=== PATIENT | female | born 1955 | race Caucasian/White ===

== ENCOUNTER 2020-09-12 13:55 | Emergency (ER) | payer MEDICARE ==
--- NOTE | 2020-09-12 14:45 | EDM.PDOC ---
ED HPI GENERAL MEDICAL PROBLEM - General Chief Complaint: Skin Complaint Stated Complaint: BANDAGE ON LEFT ARM KEEPS COMING OFF Time Seen by Provider: 09/12/20 14:00 Source of Information: Reports: Patient History Limitations: Reports: No Limitations - History of Present Illness INITIAL COMMENTS - FREE TEXT/NARRATIVE: Patient comes emergency department today with complaints of a wound recheck to her left arm. At about 830 this morning at neurology in [place] this patient had a surgical procedure in the outpatient setting for a biopsy of muscle to determine some neurology complaints. She had some sutures Steri-Strips placed and a dressing. The dressing has been sliding off and she is worried about the incision site. To make sure that everything is okay. She denies any change in the functionality of her left upper extremity. He has noticed that is been bleeding a little bit more. She has been keeping ice packs on it. Her tetanus immunization is up-to-date. - Related Data Allergies Allergy/AdvReac Type Severity Reaction Status Date / Time No Known Allergies Allergy Verified 09/12/20 14:19 Social & Family History - Tobacco Use Tobacco Use Status *Q: Unknown Ever Used Tobacco ED ROS GENERAL - Review of Systems Review Of Systems: Comprehensive ROS is negative, except as noted in HPI. ED EXAM, SKIN/RASH Exam: See Below Exam Limited By: No Limitations General Appearance: Alert, WD/WN, No Apparent Distress Respiratory/Chest: No Respiratory Distress Cardiovascular: Normal Peripheral Pulses Peripheral Pulses: 2+: Radial (L), Radial (R) Extremities: No: Normal Inspection (Lamination the left upper proximal anterior humerus shows a distal to proximal approximately 5 cm surgical incision that is minimally gaping in the middle with some Steri-Strips that have fallen off. There is a suture on the proximal and distal end of the surgical site but there are no sutures in the middle. There is no subcutaneous stitches under this either that I can identify. There is a small amount of capillary bleeding. There is no erythema injection swelling or hematoma of the area. The functionality of the left upper extremity is unchanged.) Neurological: Alert, Oriented Psychiatric: Normal Affect Skin: Warm, Dry, Intact, Normal Color Course - Vital Signs Last Recorded V/S: Last Vital Signs Temp 98.0 F 09/12/20 14:05 Pulse 74 09/12/20 14:05 Resp 16 09/12/20 14:05 BP 167/81 H 09/12/20 14:05 Pulse Ox 96 09/12/20 14:05 - Re-Assessments/Exams Free Text/Narrative Re-Assessment/Exam: 09/12/20 15:12 This wound is many hours old. I just cleanse the external aspect of it with chlorhexidine. And allowed it to dry. I then used benzoin tincture and half- inch Steri-Strips to resecure and close the vision. There was no active bleeding after this was completed. A dressing was placed. If she has any complication she is to follow-up with neurology and/or her primary care. I discussed with her the care of this Steri-Strip she was comfortable with this plan her questions are answered. Departure - Departure Time of Disposition: 14:32 Disposition: Home, Self-Care 01 Clinical Impression: Encounter for wound re-check - Discharge Information Forms: ED Department Discharge Additional Instructions: Discharge instructions as per neurology/provider that did the procedure. Leave the Steri-Strips in place they will fall off on their own. Do not get the area wet until all healed up. Watch for signs of infection. Recheck in the ED if new or worsening symptoms. Recheck in the clinic if concerns. Sepsis Event Note (ED) - Evaluation Sepsis Screening Result: No Definite Risk - Focused Exam Vital Signs: Vital Signs Temp Pulse Resp BP Pulse Ox 09/12/20 14:05 98.0 F 74 16 167/81 H 96
== END 2020-09-12 14:42 | disposition home or self-care (01) ==
LOC: VM.ED 13:55
DX: Z48.817 Encounter for surgical aftercare following surgery on the skin and subcutaneous tissue (principal)
CPT/HCPCS: 99282; 99283

== ENCOUNTER 2022-09-05 05:30 | Emergency (ER) | payer MEDICARE | END 2022-09-05 06:34 | disposition home or self-care (01) | LOC: VM.ED 05:30 | DX: M94.0 Chondrocostal junction syndrome [Tietze] (principal); I10 Essential (primary) hypertension; Z79.82 Long term (current) use of aspirin; Z79.899 Other long term (current) drug therapy | CPT/HCPCS: 93005; 99285 ==

== ENCOUNTER 2025-03-14 09:34 | Emergency (ER) | payer MEDICARE ==
[2025-03-14] MEDS: HYDROmorphone 0.5 MG/0.5 ML Syringe IVPUSH ONE (09:02)
== END 2025-03-14 12:20 | disposition home or self-care (01) ==
LOC: VM.ED 09:34
DX: S02.609A Fracture of mandible, unspecified, initial encounter for closed fracture (principal); I10 Essential (primary) hypertension; M19.90 Unspecified osteoarthritis, unspecified site; Z79.82 Long term (current) use of aspirin; Z79.899 Other long term (current) drug therapy; W01.10XA Fall on same level from slipping, tripping and stumbling with subsequent striking against unspecified object, initial encounter
CPT/HCPCS: 70486; 96374; 99284; 99284-25

== ENCOUNTER 2025-08-25 03:19 | Emergency (ER) | payer MEDICARE ==
[2025-08-25] MEDS ORDERED: Sodium Chloride 0.9% 10 ML Syringe FLUSH PRN (03:40)
[2025-08-25] MEDS: fentaNYL 100 MCG/2 ML SDV IVPUSH ONE (03:47)
[2025-08-25 04:02] LABS: BASOPHILS ABSOLUTE AUTO 0.0 x10^3/uL (0.0-0.2); BASOPHILS PERCENT AUTO 0.3 % (0.2-1.2); EOSINOPHILS ABSOLUTE AUTO 0.1 x10^3/uL (0.0-0.5); EOSINOPHILS PERCENT AUTO 1.0 % (0.0-4.0); IMMATURE GRAN ABSOLUTE AUTO 0.10 x10^3/uL (0.00-0.07); IMMATURE GRAN PERCENT AUTO 1.00 % (0.00-0.43); LYMPHOCYTES ABSOLUTE AUTO 2.9 x10^3/uL (1.0-4.8); LYMPHOCYTES PERCENT AUTO 29.1 % (25.0-50.0); MONOCYTES ABSOLUTE AUTO 0.7 x10^3/uL (0.0-0.8); MONOCYTES PERCENT AUTO 7.0 % (2.0-11.0); NEUTROPHILS ABSOLUTE AUTO 6.1 x10^3/uL (1.8-7.7); NEUTROPHILS PERCENT AUTO 61.6 % (50.0-80.0); PLATELET COUNT,PLT 371 x10^3/uL (130-400); RED BLOOD CELL COUNT 4.39 x10^6/uL (4.00-5.50); WHITE BLOOD CELL COUNT,WBC 10.0 x10^3/uL (4.0-10.0)
[2025-08-25 04:21] LABS: A/G RATIO 1.13; ALANINE AMINOTRANSFERASE,ALT 57 U/L (14-59); ASPARTATE AMNIOTRANSFERASE,AST 32 U/L (15-37); BILIRUBIN TOTAL 0.6 mg/dL (0.2-1.0); BLOOD UREA NITROGEN,BUN 16 mg/dL (7-18); CARBON DIOXIDE,CO2 25 mmol/L (21-32); CHLORIDE,CL 106 mmol/L (98-107); CREATININE 0.9 mg/dL (0.55-1.02); GLUCOSE RANDOM 111 mg/dL (70-99); POTASSIUM,K 4.7 mmol/L (3.5-5.1); PROTEIN TOTAL,TP 6.8 g/dL (6.4-8.2); SODIUM,NA 140 mmol/L (136-145)
[2025-08-25 04:23] LABS: ESTIMATED GFR 68 mL/min (>=60)
[2025-08-25 04:29] LABS: APPEARANCE,URINE CLEAR (CLEAR); GLUCOSE,URINE NEGATIVE (NEGATIVE); OCCULT BLOOD,URINE NEGATIVE (NEGATIVE)
[2025-08-25 04:37] LABS: SQUAMOUS EPITHELIAL CELLS,UR OCCASIONAL /HPF (NOT SEEN)
[2025-08-25] MEDS: Lactated Ringers 1,000 ML IV SCH (05:06)
== END 2025-08-25 05:56 | disposition short-term general hospital (02) ==
LOC: VM.ED 03:19
DX: S72.141A Displaced intertrochanteric fracture of right femur, initial encounter for closed fracture (principal); S01.311A Laceration without foreign body of right ear, initial encounter; Z79.899 Other long term (current) drug therapy; Z79.51 Long term (current) use of inhaled steroids; Z88.8 Allergy status to other drugs, medicaments and biological substances; W01.0XXA Fall on same level from slipping, tripping and stumbling without subsequent striking against object, initial encounter
CPT/HCPCS: 51702; 80053; 81001; 84484; 85025; 93005; 93010; 96361; 96374; 96375; 99284; 99285-25; J1171; J3010; J7120

== ENCOUNTER 2025-08-29 11:36 | Inpatient (IN) | payer MEDICARE ==
[2025-08-29] MEDS: Calcium Citrate/Vitamin D3 315 MG-250 Unit Tab PO SCH (18:07)
[2025-08-30 06:39] LABS: BASOPHILS ABSOLUTE AUTO 0.0 x10^3/uL (0.0-0.2); BASOPHILS PERCENT AUTO 0.3 % (0.2-1.2); EOSINOPHILS ABSOLUTE AUTO 0.2 x10^3/uL (0.0-0.5); EOSINOPHILS PERCENT AUTO 1.6 % (0.0-4.0); IMMATURE GRAN ABSOLUTE AUTO 0.04 x10^3/uL (0.00-0.07); IMMATURE GRAN PERCENT AUTO 0.40 % (0.00-0.43); LYMPHOCYTES ABSOLUTE AUTO 1.7 x10^3/uL (1.0-4.8); LYMPHOCYTES PERCENT AUTO 18.4 % (25.0-50.0); MONOCYTES ABSOLUTE AUTO 0.8 x10^3/uL (0.0-0.8); MONOCYTES PERCENT AUTO 8.0 % (2.0-11.0); NEUTROPHILS ABSOLUTE AUTO 6.7 x10^3/uL (1.8-7.7); NEUTROPHILS PERCENT AUTO 71.3 % (50.0-80.0); PLATELET COUNT,PLT 322 x10^3/uL (130-400); RED BLOOD CELL COUNT 2.80 x10^6/uL (4.00-5.50); WHITE BLOOD CELL COUNT,WBC 9.4 x10^3/uL (4.0-10.0)
[2025-08-30 06:51] LABS: BLOOD UREA NITROGEN,BUN 3.0 mg/dL (7-18); CARBON DIOXIDE,CO2 27.0 mmol/L (21-32); CHLORIDE,CL 107.0 mmol/L (98-107); CREATININE 0.5 mg/dL (0.55-1.02); EST CRCL DRUG DOSING (CG) 85.37 mL/min; GLUCOSE RANDOM 100.0 mg/dL (70-99); SODIUM,NA 141.0 mmol/L (136-145)
[2025-08-30 06:54] LABS: ESTIMATED GFR 100.0 mL/min (>=60); POTASSIUM,K 2.3 mmol/L (3.5-5.1)
[2025-08-30] MEDS: Potassium Chloride 20 MEQ Tab.ER PO ONE (07:52)
[2025-08-30] MEDS: buPROPion 150 MG Tab.ER PO SCH (08:16)
[2025-08-30] MEDS: Cholecalciferol (Vitamin D3) 25 MCG Tab PO SCH (08:17)
[2025-08-30] MEDS: Propranolol 80 MG Cap.ER PO SCH (08:17)
[2025-08-30] MEDS: Potassium Chloride 10 MEQ Tab.ER PO SCH ×3 (08:17→09:28)
[2025-08-30] MEDS: Venlafaxine 75 MG Cap.ER PO SCH (08:17)
[2025-08-31 19:53] LABS: APPEARANCE,URINE CLEAR (CLEAR); GLUCOSE,URINE NEGATIVE (NEGATIVE); OCCULT BLOOD,URINE NEGATIVE (NEGATIVE)
[2025-08-31 19:55] LABS: SQUAMOUS EPITHELIAL CELLS,UR FEW /HPF (NOT SEEN)
[2025-08-31] MEDS: Potassium Chloride 20 MEQ Tab.ER PO ONE (21:04)
[2025-09-02] MEDS: Magnesium Hydroxide 400 MG/5 ML Susp 30 ML Cup PO PRN (12:20)
[2025-09-03 06:53] LABS: BASOPHILS ABSOLUTE AUTO 0.0 x10^3/uL (0.0-0.2); BASOPHILS PERCENT AUTO 0.2 % (0.2-1.2); EOSINOPHILS ABSOLUTE AUTO 0.1 x10^3/uL (0.0-0.5); EOSINOPHILS PERCENT AUTO 1.0 % (0.0-4.0); IMMATURE GRAN ABSOLUTE AUTO 0.09 x10^3/uL (0.00-0.07); IMMATURE GRAN PERCENT AUTO 0.80 % (0.00-0.43); LYMPHOCYTES ABSOLUTE AUTO 1.9 x10^3/uL (1.0-4.8); LYMPHOCYTES PERCENT AUTO 16.7 % (25.0-50.0); MONOCYTES ABSOLUTE AUTO 0.9 x10^3/uL (0.0-0.8); MONOCYTES PERCENT AUTO 7.8 % (2.0-11.0); NEUTROPHILS ABSOLUTE AUTO 8.5 x10^3/uL (1.8-7.7); NEUTROPHILS PERCENT AUTO 73.5 % (50.0-80.0); PLATELET COUNT,PLT 512 x10^3/uL (130-400); RED BLOOD CELL COUNT 3.47 x10^6/uL (4.00-5.50); WHITE BLOOD CELL COUNT,WBC 11.5 x10^3/uL (4.0-10.0)
[2025-09-03 06:59] LABS: BLOOD UREA NITROGEN,BUN 12.0 mg/dL (7-18); CARBON DIOXIDE,CO2 30.0 mmol/L (21-32); CHLORIDE,CL 101.0 mmol/L (98-107); CREATININE 0.7 mg/dL (0.55-1.02); EST CRCL DRUG DOSING (CG) 60.98 mL/min; GLUCOSE RANDOM 106.0 mg/dL (70-99); POTASSIUM,K 4.2 mmol/L (3.5-5.1); SODIUM,NA 136.0 mmol/L (136-145)
[2025-09-03 07:01] LABS: ESTIMATED GFR 92.0 mL/min (>=60)
[2025-09-03] MEDS: Potassium Chloride 10 MEQ Tab.ER PO SCH (08:25)
[2025-09-03 11:14] LABS: GLUCOSE,URINE NEGATIVE (NEGATIVE); OCCULT BLOOD,URINE MODERATE (NEGATIVE)
[2025-09-03 11:29] LABS: APPEARANCE,URINE SLIGHTLY CLOUDY (CLEAR)
[2025-09-03 11:30] LABS: SQUAMOUS EPITHELIAL CELLS,UR OCCASIONAL /HPF (NOT SEEN)
[2025-09-04] MEDS: Iopamidol 612 MG/ML 100 ML Bottle IVPUSH ONE (08:40)
[2025-09-04] MEDS: Amoxicillin/Clavulanate K 875-125 MG Tab PO SCH (08:51)
[2025-09-05 06:53] LABS: PLATELET COUNT,PLT 528 x10^3/uL (130-400); RED BLOOD CELL COUNT 3.33 x10^6/uL (4.00-5.50)
[2025-09-05 07:00] LABS: WHITE BLOOD CELL COUNT,WBC 25.4 x10^3/uL (4.0-10.0)
[2025-09-05 07:18] LABS: A/G RATIO 0.75; ALANINE AMINOTRANSFERASE,ALT 27.0 U/L (14-59); ASPARTATE AMNIOTRANSFERASE,AST 16.0 U/L (15-37); BILIRUBIN TOTAL 0.9 mg/dL (0.2-1.0); BLOOD UREA NITROGEN,BUN 17.0 mg/dL (7-18); CARBON DIOXIDE,CO2 27.0 mmol/L (21-32); CHLORIDE,CL 102.0 mmol/L (98-107); CREATININE 0.8 mg/dL (0.55-1.02); EST CRCL DRUG DOSING (CG) 53.35 mL/min; ESTIMATED GFR 79.0 mL/min (>=60); GLUCOSE RANDOM 114.0 mg/dL (70-99); POTASSIUM,K 3.7 mmol/L (3.5-5.1); PROTEIN TOTAL,TP 6.3 g/dL (6.4-8.2); SODIUM,NA 138.0 mmol/L (136-145)
[2025-09-05 07:19] LABS: BAND PERCENT MAN 1 % (0-6); LYMPHOCYTES ABSOLUTE MAN 1.3 x10^3/uL (1.0-4.8); LYMPHOCYTES PERCENT MAN 5 % (25-50); MONOCYTES ABSOLUTE MAN 1.8 x10^3/uL (0.0-0.8); MONOCYTES PERCENT MAN 7 % (2-11); NEUTROPHILS ABSOLUTE MAN 22.4 x10^3/uL (1.8-7.7); PLATELET COUNT ESTIMATE INCREASED; SEG NEUTROPHILS PERCENT MAN 87 % (50-80)
[2025-09-06 06:47] LABS: PLATELET COUNT,PLT 539 x10^3/uL (130-400); RED BLOOD CELL COUNT 3.16 x10^6/uL (4.00-5.50)
[2025-09-06 07:13] LABS: WHITE BLOOD CELL COUNT,WBC 21.0 x10^3/uL (4.0-10.0)
[2025-09-06 07:15] LABS: LYMPHOCYTES ABSOLUTE MAN 1.1 x10^3/uL (1.0-4.8); LYMPHOCYTES PERCENT MAN 5 % (25-50); MONOCYTES ABSOLUTE MAN 0.8 x10^3/uL (0.0-0.8); MONOCYTES PERCENT MAN 4 % (2-11); NEUTROPHILS ABSOLUTE MAN 19.1 x10^3/uL (1.8-7.7); SEG NEUTROPHILS PERCENT MAN 91 % (50-80)
[2025-09-06 07:16] LABS: PLATELET COUNT ESTIMATE INCREASED
[2025-09-07 06:45] LABS: BASOPHILS ABSOLUTE AUTO 0.1 x10^3/uL (0.0-0.2); BASOPHILS PERCENT AUTO 0.4 % (0.2-1.2); EOSINOPHILS ABSOLUTE AUTO 0.1 x10^3/uL (0.0-0.5); EOSINOPHILS PERCENT AUTO 0.6 % (0.0-4.0); IMMATURE GRAN ABSOLUTE AUTO 0.08 x10^3/uL (0.00-0.07); IMMATURE GRAN PERCENT AUTO 0.60 % (0.00-0.43); LYMPHOCYTES ABSOLUTE AUTO 1.2 x10^3/uL (1.0-4.8); LYMPHOCYTES PERCENT AUTO 8.8 % (25.0-50.0); MONOCYTES ABSOLUTE AUTO 1.1 x10^3/uL (0.0-0.8); MONOCYTES PERCENT AUTO 7.5 % (2.0-11.0); NEUTROPHILS ABSOLUTE AUTO 11.6 x10^3/uL (1.8-7.7); NEUTROPHILS PERCENT AUTO 82.1 % (50.0-80.0); PLATELET COUNT,PLT 570 x10^3/uL (130-400); RED BLOOD CELL COUNT 3.02 x10^6/uL (4.00-5.50); WHITE BLOOD CELL COUNT,WBC 14.1 x10^3/uL (4.0-10.0)
[2025-09-07 07:00] LABS: BLOOD UREA NITROGEN,BUN 20.0 mg/dL (7-18); CARBON DIOXIDE,CO2 28.0 mmol/L (21-32); CHLORIDE,CL 105.0 mmol/L (98-107); CREATININE 0.8 mg/dL (0.55-1.02); EST CRCL DRUG DOSING (CG) 53.35 mL/min; GLUCOSE RANDOM 91.0 mg/dL (70-99); POTASSIUM,K 3.6 mmol/L (3.5-5.1); SODIUM,NA 140.0 mmol/L (136-145)
[2025-09-07 07:02] LABS: ESTIMATED GFR 79.0 mL/min (>=60)
[2025-09-07] MEDS: Amoxicillin/Clavulanate K 600-42.9 MG/5 ML Susp 125 ML Bottle PO SCH (17:12)
[2025-09-09] MEDS: Aspirin 325 MG Tab.EC PO SCH (09:04)
[2025-09-10 07:17] LABS: BASOPHILS ABSOLUTE AUTO 0.1 x10^3/uL (0.0-0.2); BASOPHILS PERCENT AUTO 0.5 % (0.2-1.2); EOSINOPHILS ABSOLUTE AUTO 0.1 x10^3/uL (0.0-0.5); EOSINOPHILS PERCENT AUTO 0.6 % (0.0-4.0); IMMATURE GRAN ABSOLUTE AUTO 0.22 x10^3/uL (0.00-0.07); IMMATURE GRAN PERCENT AUTO 2.00 % (0.00-0.43); LYMPHOCYTES ABSOLUTE AUTO 2.3 x10^3/uL (1.0-4.8); LYMPHOCYTES PERCENT AUTO 21.0 % (25.0-50.0); MONOCYTES ABSOLUTE AUTO 0.8 x10^3/uL (0.0-0.8); MONOCYTES PERCENT AUTO 7.2 % (2.0-11.0); NEUTROPHILS ABSOLUTE AUTO 7.6 x10^3/uL (1.8-7.7); NEUTROPHILS PERCENT AUTO 68.7 % (50.0-80.0); RED BLOOD CELL COUNT 3.41 x10^6/uL (4.00-5.50); WHITE BLOOD CELL COUNT,WBC 11.1 x10^3/uL (4.0-10.0)
[2025-09-10 07:24] LABS: BLOOD UREA NITROGEN,BUN 12.0 mg/dL (7-18); CARBON DIOXIDE,CO2 27.0 mmol/L (21-32); CHLORIDE,CL 106.0 mmol/L (98-107); CREATININE 0.6 mg/dL (0.55-1.02); EST CRCL DRUG DOSING (CG) 71.14 mL/min; ESTIMATED GFR 96.0 mL/min (>=60); GLUCOSE RANDOM 98.0 mg/dL (70-99); POTASSIUM,K 4.3 mmol/L (3.5-5.1); SODIUM,NA 139.0 mmol/L (136-145)
[2025-09-10 07:48] LABS: PLATELET COUNT,PLT 711 x10^3/uL (130-400)
== END 2025-09-12 10:30 | DRG 948 ==
LOC: VM.MS 14:14
PROVIDERS: ADMIT Internal Medicine; ATTEND Internal Medicine
DX: R53.1 Weakness (principal); F05 Delirium due to known physiological condition; F03.94 Unspecified dementia, unspecified severity, with anxiety; F03.93 Unspecified dementia, unspecified severity, with mood disturbance; Z66 Do not resuscitate; K11.21 Acute sialoadenitis; I10 Essential (primary) hypertension; M81.0 Age-related osteoporosis without current pathological fracture; R33.9 Retention of urine, unspecified; S72.143D Displaced intertrochanteric fracture of unspecified femur, subsequent encounter for closed fracture with routine healing; E55.9 Vitamin D deficiency, unspecified; J30.9 Allergic rhinitis, unspecified; Z90.49 Acquired absence of other specified parts of digestive tract; Z98.890 Other specified postprocedural states
CPT/HCPCS: 36415; 51701; 51702; 70491; 71045; 80048; 80053; 81001; 83735; 84132; 85025; 92526-GN; 92610-GN; 97110-GP; 97116-GP; 97162-GP; 97165-GO; 97535-GO; A4315; A9270-GY; J0295; J0696; J1650; Q3014; Q9967

== ENCOUNTER 2025-09-27 10:18 | Inpatient (IN) | payer MEDICARE ==
[2025-09-27 10:31] LABS: BASOPHILS ABSOLUTE AUTO 0.0 x10^3/uL (0.0-0.2); BASOPHILS PERCENT AUTO 0.2 % (0.2-1.2); EOSINOPHILS ABSOLUTE AUTO 0.1 x10^3/uL (0.0-0.5); EOSINOPHILS PERCENT AUTO 0.6 % (0.0-4.0); IMMATURE GRAN ABSOLUTE AUTO 0.03 x10^3/uL (0.00-0.07); IMMATURE GRAN PERCENT AUTO 0.20 % (0.00-0.43); LYMPHOCYTES ABSOLUTE AUTO 2.2 x10^3/uL (1.0-4.8); LYMPHOCYTES PERCENT AUTO 14.6 % (25.0-50.0); MONOCYTES ABSOLUTE AUTO 1.0 x10^3/uL (0.0-0.8); MONOCYTES PERCENT AUTO 6.6 % (2.0-11.0); NEUTROPHILS ABSOLUTE AUTO 11.8 x10^3/uL (1.8-7.7); NEUTROPHILS PERCENT AUTO 77.8 % (50.0-80.0); PLATELET COUNT,PLT 480 x10^3/uL (130-400); RED BLOOD CELL COUNT 4.26 x10^6/uL (4.00-5.50); WHITE BLOOD CELL COUNT,WBC 15.1 x10^3/uL (4.0-10.0)
[2025-09-27] MEDS: LORazepam 2 MG/ML SDV IVPUSH ONE (10:48)
[2025-09-27 10:55] LABS: A/G RATIO 0.79; ALANINE AMINOTRANSFERASE,ALT 21 U/L (14-59); ASPARTATE AMNIOTRANSFERASE,AST 21 U/L (15-37); BILIRUBIN TOTAL 0.4 mg/dL (0.2-1.0); BLOOD UREA NITROGEN,BUN 21 mg/dL (7-18); CARBON DIOXIDE,CO2 27 mmol/L (21-32); CHLORIDE,CL 101 mmol/L (98-107); CREATININE 0.7 mg/dL (0.55-1.02); ESTIMATED GFR 92 mL/min (>=60); GLUCOSE RANDOM 125 mg/dL (70-99); POTASSIUM,K 4.7 mmol/L (3.5-5.1); PROTEIN TOTAL,TP 7.5 g/dL (6.4-8.2); SODIUM,NA 138 mmol/L (136-145)
[2025-09-27] MEDS: Iopamidol 755 Mg/ML 100 ML Bottle IVPUSH ONE (11:28)
[2025-09-27] MEDS ORDERED: Sodium Chloride 0.9% 10 ML Syringe FLUSH PRN (14:38)
[2025-09-27 16:25] LABS: CORONAVIRUS COVID-19 NAA NEGATIVE (NEGATIVE); INFLUENZA A NAA NEGATIVE (NEGATIVE); INFLUENZA B NAA NEGATIVE (NEGATIVE); RESPIRATORY SYNCYTIAL VIR NAA NEGATIVE (NEGATIVE)
[2025-09-27] MEDS ORDERED: 50% Dextrose in Water 50 ML Syringe IVPUSH PRN (17:30)
[2025-09-27] MEDS: Calcium Citrate/Vitamin D3 315 MG-250 Unit Tab PO SCH (18:03)
[2025-09-28 06:53] LABS: BASOPHILS ABSOLUTE AUTO 0.0 x10^3/uL (0.0-0.2); BASOPHILS PERCENT AUTO 0.2 % (0.2-1.2); EOSINOPHILS ABSOLUTE AUTO 0.2 x10^3/uL (0.0-0.5); EOSINOPHILS PERCENT AUTO 1.6 % (0.0-4.0); IMMATURE GRAN ABSOLUTE AUTO 0.03 x10^3/uL (0.00-0.07); IMMATURE GRAN PERCENT AUTO 0.20 % (0.00-0.43); LYMPHOCYTES ABSOLUTE AUTO 1.9 x10^3/uL (1.0-4.8); LYMPHOCYTES PERCENT AUTO 12.6 % (25.0-50.0); MONOCYTES ABSOLUTE AUTO 1.0 x10^3/uL (0.0-0.8); MONOCYTES PERCENT AUTO 7.0 % (2.0-11.0); NEUTROPHILS ABSOLUTE AUTO 11.7 x10^3/uL (1.8-7.7); NEUTROPHILS PERCENT AUTO 78.4 % (50.0-80.0); PLATELET COUNT,PLT 344 x10^3/uL (130-400); RED BLOOD CELL COUNT 3.87 x10^6/uL (4.00-5.50); WHITE BLOOD CELL COUNT,WBC 14.9 x10^3/uL (4.0-10.0)
[2025-09-28 07:03] LABS: BLOOD UREA NITROGEN,BUN 17.0 mg/dL (7-18); CARBON DIOXIDE,CO2 26.0 mmol/L (21-32); CHLORIDE,CL 106.0 mmol/L (98-107); CREATININE 0.5 mg/dL (0.55-1.02); EST CRCL DRUG DOSING (CG) 80.84 mL/min; GLUCOSE RANDOM 98.0 mg/dL (70-99); POTASSIUM,K 4.8 mmol/L (3.5-5.1); SODIUM,NA 139.0 mmol/L (136-145)
[2025-09-28 07:08] LABS: ESTIMATED GFR 100.0 mL/min (>=60)
[2025-09-28] MEDS: Aspirin 325 MG Tab.EC PO SCH (09:08)
[2025-09-28] MEDS: Cholecalciferol (Vitamin D3) 25 MCG Tab PO SCH (09:08)
[2025-09-28] MEDS: buPROPion 150 MG Tab.ER PO SCH (09:08)
[2025-09-28] MEDS: Propranolol 80 MG Cap.ER PO SCH (09:09)
[2025-09-28] MEDS: Venlafaxine 75 MG Cap.ER PO SCH (09:50)
[2025-09-29 08:38] LABS: BASOPHILS ABSOLUTE AUTO 0.1 x10^3/uL (0.0-0.2); BASOPHILS PERCENT AUTO 0.4 % (0.2-1.2); EOSINOPHILS ABSOLUTE AUTO 0.4 x10^3/uL (0.0-0.5); EOSINOPHILS PERCENT AUTO 3.4 % (0.0-4.0); IMMATURE GRAN ABSOLUTE AUTO 0.05 x10^3/uL (0.00-0.07); IMMATURE GRAN PERCENT AUTO 0.40 % (0.00-0.43); LYMPHOCYTES ABSOLUTE AUTO 2.1 x10^3/uL (1.0-4.8); LYMPHOCYTES PERCENT AUTO 18.4 % (25.0-50.0); MONOCYTES ABSOLUTE AUTO 1.1 x10^3/uL (0.0-0.8); MONOCYTES PERCENT AUTO 9.4 % (2.0-11.0); NEUTROPHILS ABSOLUTE AUTO 7.6 x10^3/uL (1.8-7.7); NEUTROPHILS PERCENT AUTO 68.0 % (50.0-80.0); PLATELET COUNT,PLT 375 x10^3/uL (130-400); RED BLOOD CELL COUNT 3.91 x10^6/uL (4.00-5.50); WHITE BLOOD CELL COUNT,WBC 11.1 x10^3/uL (4.0-10.0)
[2025-09-29 08:44] LABS: A/G RATIO 0.74; ALANINE AMINOTRANSFERASE,ALT 15.0 U/L (14-59); ASPARTATE AMNIOTRANSFERASE,AST 17.0 U/L (15-37); BILIRUBIN TOTAL 0.3 mg/dL (0.2-1.0); BLOOD UREA NITROGEN,BUN 14.0 mg/dL (7-18); CARBON DIOXIDE,CO2 26.0 mmol/L (21-32); CHLORIDE,CL 106.0 mmol/L (98-107); CREATININE 0.6 mg/dL (0.55-1.02); EST CRCL DRUG DOSING (CG) 67.49 mL/min; GLUCOSE RANDOM 96.0 mg/dL (70-99); POTASSIUM,K 3.8 mmol/L (3.5-5.1); PROTEIN TOTAL,TP 6.6 g/dL (6.4-8.2); SODIUM,NA 140.0 mmol/L (136-145)
[2025-09-29 08:47] LABS: ESTIMATED GFR 96.0 mL/min (>=60)
[2025-09-30 08:08] LABS: BASOPHILS ABSOLUTE AUTO 0.1 x10^3/uL (0.0-0.2); BASOPHILS PERCENT AUTO 0.5 % (0.2-1.2); EOSINOPHILS ABSOLUTE AUTO 0.2 x10^3/uL (0.0-0.5); EOSINOPHILS PERCENT AUTO 2.4 % (0.0-4.0); IMMATURE GRAN ABSOLUTE AUTO 0.04 x10^3/uL (0.00-0.07); IMMATURE GRAN PERCENT AUTO 0.40 % (0.00-0.43); LYMPHOCYTES ABSOLUTE AUTO 2.1 x10^3/uL (1.0-4.8); LYMPHOCYTES PERCENT AUTO 21.7 % (25.0-50.0); MONOCYTES ABSOLUTE AUTO 0.8 x10^3/uL (0.0-0.8); MONOCYTES PERCENT AUTO 8.3 % (2.0-11.0); NEUTROPHILS ABSOLUTE AUTO 6.4 x10^3/uL (1.8-7.7); NEUTROPHILS PERCENT AUTO 66.7 % (50.0-80.0); PLATELET COUNT,PLT 384 x10^3/uL (130-400); RED BLOOD CELL COUNT 4.11 x10^6/uL (4.00-5.50); WHITE BLOOD CELL COUNT,WBC 9.6 x10^3/uL (4.0-10.0)
[2025-09-30 08:21] LABS: ALANINE AMINOTRANSFERASE,ALT 15.0 U/L (14-59); ASPARTATE AMNIOTRANSFERASE,AST 18.0 U/L (15-37); BILIRUBIN TOTAL 0.2 mg/dL (0.2-1.0); BLOOD UREA NITROGEN,BUN 14.0 mg/dL (7-18); CARBON DIOXIDE,CO2 23.0 mmol/L (21-32); CHLORIDE,CL 107.0 mmol/L (98-107); CREATININE 0.6 mg/dL (0.55-1.02); EST CRCL DRUG DOSING (CG) 66.94 mL/min; GLUCOSE RANDOM 108.0 mg/dL (70-99); POTASSIUM,K 3.9 mmol/L (3.5-5.1); PROTEIN TOTAL,TP 6.5 g/dL (6.4-8.2); SODIUM,NA 139.0 mmol/L (136-145)
[2025-09-30 08:27] LABS: A/G RATIO 0.67
[2025-09-30 08:30] LABS: ESTIMATED GFR 96.0 mL/min (>=60)
[2025-09-30] MEDS ORDERED: Glucose Gel 15 GM in 37.5 GM Tube PO PRN (18:25)
[2025-10-01 06:55] LABS: BASOPHILS ABSOLUTE AUTO 0.1 x10^3/uL (0.0-0.2); BASOPHILS PERCENT AUTO 0.4 % (0.2-1.2); EOSINOPHILS ABSOLUTE AUTO 0.2 x10^3/uL (0.0-0.5); EOSINOPHILS PERCENT AUTO 1.7 % (0.0-4.0); IMMATURE GRAN ABSOLUTE AUTO 0.05 x10^3/uL (0.00-0.07); IMMATURE GRAN PERCENT AUTO 0.40 % (0.00-0.43); LYMPHOCYTES ABSOLUTE AUTO 2.1 x10^3/uL (1.0-4.8); LYMPHOCYTES PERCENT AUTO 18.2 % (25.0-50.0); MONOCYTES ABSOLUTE AUTO 0.9 x10^3/uL (0.0-0.8); MONOCYTES PERCENT AUTO 7.9 % (2.0-11.0); NEUTROPHILS ABSOLUTE AUTO 8.1 x10^3/uL (1.8-7.7); NEUTROPHILS PERCENT AUTO 71.4 % (50.0-80.0); PLATELET COUNT,PLT 453 x10^3/uL (130-400); RED BLOOD CELL COUNT 3.77 x10^6/uL (4.00-5.50); WHITE BLOOD CELL COUNT,WBC 11.4 x10^3/uL (4.0-10.0)
[2025-10-01 07:05] LABS: A/G RATIO 0.73; ALANINE AMINOTRANSFERASE,ALT 15.0 U/L (14-59); ASPARTATE AMNIOTRANSFERASE,AST 15.0 U/L (15-37); BILIRUBIN TOTAL 0.2 mg/dL (0.2-1.0); BLOOD UREA NITROGEN,BUN 13.0 mg/dL (7-18); CARBON DIOXIDE,CO2 25.0 mmol/L (21-32); CHLORIDE,CL 107.0 mmol/L (98-107); CREATININE 0.5 mg/dL (0.55-1.02); EST CRCL DRUG DOSING (CG) 79.66 mL/min; GLUCOSE RANDOM 88.0 mg/dL (70-99); POTASSIUM,K 3.8 mmol/L (3.5-5.1); PROTEIN TOTAL,TP 6.4 g/dL (6.4-8.2); SODIUM,NA 142.0 mmol/L (136-145)
[2025-10-01 07:06] LABS: ESTIMATED GFR 100.0 mL/min (>=60)
[2025-10-01] MEDS: Amoxicillin/Clavulanate K 600-42.9 MG/5 ML Susp 125 ML Bottle PO SCH (09:53)
[2025-10-01] MEDS ORDERED: Calcium Citrate/Vitamin D3 315 MG-250 Unit Tab PO SCH (17:00)
== END 2025-10-01 10:20 | DRG 177 ==
LOC: VM.ED 10:18 → VM.MS 13:27
PROVIDERS: ADMIT Internal Medicine; ATTEND Internal Medicine
DX: J18.9 Pneumonia, unspecified organism (principal); J69.0 Pneumonitis due to inhalation of food and vomit; M91.90 Juvenile osteochondrosis of hip and pelvis, unspecified, unspecified leg; J96.01 Acute respiratory failure with hypoxia; F03.94 Unspecified dementia, unspecified severity, with anxiety; F03.93 Unspecified dementia, unspecified severity, with mood disturbance; J18.8 Other pneumonia, unspecified organism; I10 Essential (primary) hypertension; Z66 Do not resuscitate; J31.0 Chronic rhinitis; E78.00 Pure hypercholesterolemia, unspecified; M19.90 Unspecified osteoarthritis, unspecified site; M81.0 Age-related osteoporosis without current pathological fracture; E87.6 Hypokalemia; E16.2 Hypoglycemia, unspecified; Z88.8 Allergy status to other drugs, medicaments and biological substances; Z79.82 Long term (current) use of aspirin; Z98.890 Other specified postprocedural states; Z79.899 Other long term (current) drug therapy; Z90.710 Acquired absence of both cervix and uterus
CPT/HCPCS: 36415; 71045; 71275; 80048; 80053; 82947; 84484; 85025; 85379; 86140; 87070; 87637; 92610-GN; 96374; 99232-GT; 99284; 99285-25; A9270-GY; J0456; J0696; J1650; J2060; J7030; J7050; Q9967